=== PATIENT | female | born 1980 | race Caucasian/White ===

== ENCOUNTER 2020-05-16 06:55 | Emergency (ER) | payer OTHER ==
[~2020-05-16 06:55] MED LIST: FLONASE 0.05% N16 GM; IBUPROFEN600 MG PO; PEPCID20 MG PO; PREDNISONE20 MG PO; ZOFRAN4 MG PO
[2020-05-16 09:11] LABS: HEMOGLOBIN 12.5 gm/dl (12.3-15.3); RED BLOOD COUNT 4.54 M/UL (4.00-5.10); WHITE BLOOD COUNT 6.8 K/UL (4.5-11.0)
[2020-05-16 09:35] LABS: BUN/CREATININE RATIO 23 (0-10)
[2020-05-16] MEDS ORDERED: ONDANSETRON ODT4 MG SL (10:37)
[2020-05-16] MEDS ORDERED: PYRIDIUM200 MG PO (10:37)
[2020-05-16] MEDS ORDERED: CEFUROXIME500 MG PO (10:37)
== END 2020-05-16 11:44 | disposition home or self-care (01) ==
LOC: ER1 06:55
PROVIDERS: Physician Assistant
DX: N39.0 Urinary tract infection, site not specified (principal); R31.9 Hematuria, unspecified; K59.00 Constipation, unspecified; J45.909 Unspecified asthma, uncomplicated; E03.9 Hypothyroidism, unspecified; Z87.442 Personal history of urinary calculi; Z87.39 Personal history of other diseases of the musculoskeletal system and connective tissue; Z88.0 Allergy status to penicillin; Z90.710 Acquired absence of both cervix and uterus; Z79.899 Other long term (current) drug therapy
CPT/HCPCS: 80053; 81001; 85025; 87086; 96374; 99284; J1885; J7030

== ENCOUNTER 2020-06-20 17:23 | Emergency (ER) | payer OTHER ==
[~2020-06-20 17:23] MED LIST changes: +CEFUROXIME500 MG PO; +ONDANSETRON ODT4 MG SL; +PYRIDIUM200 MG PO
[2020-06-20 19:11] LABS: HEMOGLOBIN 13.1 gm/dl (12.3-15.3); RED BLOOD COUNT 4.73 M/UL (4.00-5.10); WHITE BLOOD COUNT 4.5 K/UL (4.5-11.0)
[2020-06-20 19:32] LABS: BUN/CREATININE RATIO 12 (0-10)
[2020-06-20] MEDS ORDERED: ZITHROMAX500 MG PO (20:18)
[2020-06-20] MEDS ORDERED: TESSALON PERLE100 MG PO (20:18)
[2020-06-20] MEDS ORDERED: MEDROL4 MG PO (20:18)
== END 2020-06-20 20:40 | disposition home or self-care (01) ==
LOC: ER1 17:23
PROVIDERS: Preventive Medicine Occupational Medicine
DX: U07.1 COVID-19 (principal); J45.909 Unspecified asthma, uncomplicated; F17.200 Nicotine dependence, unspecified, uncomplicated
CPT/HCPCS: 0240U; 36415; 71045; 80048; 85025; 96372; 99285; J2930

== ENCOUNTER 2020-06-22 04:16 | Emergency (ER) | payer OTHER ==
[~2020-06-22 04:16] MED LIST changes: +MEDROL4 MG PO; +TESSALON PERLE100 MG PO; +ZITHROMAX500 MG PO
[2020-06-22 05:27] LABS: HEMOGLOBIN 13.1 gm/dl (12.3-15.3); RED BLOOD COUNT 4.63 M/UL (4.00-5.10)
[2020-06-22 05:28] LABS: WHITE BLOOD COUNT 14.9 K/UL (4.5-11.0)
[2020-06-22 05:44] LABS: BUN/CREATININE RATIO 21 (0-10)
[2020-06-22] MEDS ORDERED: NASONEX17 GM (06:47)
[2020-06-22] MEDS ORDERED: FLOVENT 110.088 GM/I INH (06:47)
[2020-06-22] MEDS ORDERED: ZOFRAN 4 MG TAB4 MG PO (06:47)
[2020-06-22] MEDS ORDERED: IBUPROFEN800 MG PO (06:47)
[2020-06-22] MEDS ORDERED: PROAIR DIGIHAL90 MCG INH (06:47)
== END 2020-06-22 07:00 | disposition home or self-care (01) ==
LOC: ER1 04:16
PROVIDERS: Emergency Medicine
DX: U07.1 COVID-19 (principal); J45.909 Unspecified asthma, uncomplicated
CPT/HCPCS: 71045; 80053; 81001; 85025; 93005; 99285

== ENCOUNTER 2020-06-28 15:48 | Inpatient (IN) | payer OTHER ==
[~2020-06-28] VITALS: Ht 162.6 cm; Wt 90.7 kg
[~2020-06-28 15:48] MED LIST changes: +FLOVENT 110.088 GM/I INH; +IBUPROFEN800 MG PO; +NASONEX17 GM; +PROAIR DIGIHAL90 MCG INH; +ZOFRAN 4 MG TAB4 MG PO
[2020-06-28 20:10] LABS: HEMOGLOBIN 13.7 gm/dl (12.3-15.3); RED BLOOD COUNT 4.9 M/UL (4.00-5.10); WHITE BLOOD COUNT 7.7 K/UL (4.5-11.0)
[2020-06-28 20:27] LABS: BUN/CREATININE RATIO 21 (0-10)
[2020-06-29] MEDS ORDERED: PROGESTERONE200 MG PO (00:18)
[2020-06-29] MEDS ORDERED: PROTONIX 40 MG40 M1 PO (00:19)
[2020-06-29] MEDS ORDERED: WELLBUTRIN SR150 M1 PO (00:19)
[2020-06-29] MEDS ORDERED: XYZAL5 MG PO (00:21)
[2020-06-29] MEDS ORDERED: LEVOTHYROXINE150 MC1 PO (00:22)
[2020-06-29] MEDS ORDERED: PROBIOTIC1 EAC1 PO (00:22)
[2020-06-29] MEDS ORDERED: ASPIRIN EC81 MG PO (00:23)
[2020-06-29] MEDS ORDERED: TYLENOL 500 MG500 MG PO (00:24)
[2020-06-29] MEDS ORDERED: MELOXICAM7.5 MG PO (00:25)
[2020-06-29] MEDS ORDERED: VENTOLIN HFA 66.7 GM INH (00:26)
[2020-06-29] MEDS ORDERED: ALBUTEROL2.5 MG/3 M INH (00:27)
[2020-06-29] MEDS ORDERED: ZOLOFT100 MG PO (00:27)
[2020-06-29] MEDS ORDERED: CLARITIN10 M2 PO (00:28)
[2020-06-29] MEDS ORDERED: SINGULAIR10 MG PO (00:28)
[2020-06-29] MEDS ORDERED: ESTRADIOL PATCH TOP (00:36)
[2020-06-29 08:27] LABS: HEMOGLOBIN 12.7 gm/dl (12.3-15.3); RED BLOOD COUNT 4.62 M/UL (4.00-5.10); WHITE BLOOD COUNT 5.9 K/UL (4.5-11.0)
[2020-06-29 08:46] LABS: BUN/CREATININE RATIO 21 (0-10)
[2020-07-02 04:16] LABS: HEMOGLOBIN 11.3 gm/dl (12.3-15.3)
[2020-07-02 04:18] LABS: BUN/CREATININE RATIO 30 (0-10)
[2020-07-02 04:27] LABS: RED BLOOD COUNT 4.09 M/UL (4.00-5.10); WHITE BLOOD COUNT 13.4 K/UL (4.5-11.0)
[2020-07-02] MEDS ORDERED: DOXYCYCLINE HY100 M2 PO (14:26)
[2020-07-02] MEDS ORDERED: DEXAMETHASONE1 MG PO (14:26)
== END 2020-07-02 16:51 | disposition home or self-care (01) | DRG 177 ==
LOC: ER1 15:48 → CDU 21:24 → M/S 06-29 18:00
PROVIDERS: Emergency Medicine; Internal Medicine; ADMIT Internal Medicine
PROC: 8E0ZXY6 Isolation (ICD-10-PCS; principal; 2020-06-28)
PROC: XW033E5 Introduction of Remdesivir Anti-infective into Peripheral Vein, Percutaneous Approach, New Technology Group 5 (ICD-10-PCS; 2020-06-28)
PROC: XW13325 Transfusion of Convalescent Plasma (Nonautologous) into Peripheral Vein, Percutaneous Approach, New Technology Group 5 (ICD-10-PCS; 2020-06-29)
DX: U07.1 COVID-19 (principal); J12.82 Pneumonia due to coronavirus disease 2019; J45.909 Unspecified asthma, uncomplicated; E03.9 Hypothyroidism, unspecified; Z90.710 Acquired absence of both cervix and uterus; Z88.0 Allergy status to penicillin; Z82.5 Family history of asthma and other chronic lower respiratory diseases; Z83.3 Family history of diabetes mellitus; Z82.49 Family history of ischemic heart disease and other diseases of the circulatory system; F41.9 Anxiety disorder, unspecified; Z79.82 Long term (current) use of aspirin; Z79.890 Hormone replacement therapy; Z79.899 Other long term (current) drug therapy
CPT/HCPCS: 36415; 36600; 71045; 80048; 80053; 82550; 82553; 82803; 83605; 83690; 83735; 83874; 83880; 84100; 84439; 84443; 84484; 85025; 85027; 85379; 85610; 85730; 86900; 86901; 86927; 87040; 93005; 94640; 94664; 94760; 96365; 96366; 96367; 96375; 99285; J1100; J1650; J2405; J7030

== ENCOUNTER → 2020-07-24 | Outpatient (CLI) | payer OTHER ==
[~2020-07-24] MED LIST changes: +ALBUTEROL2.5 MG/3 M INH; +ASPIRIN EC81 MG PO; +CLARITIN10 M2 PO; +CLEOCIN HCL300 MG PO; +DEXAMETHASONE1 MG PO; +DOXYCYCLINE HY100 M2 PO; +ESTRADIOL PATCH TOP; +LEVOTHYROXINE150 MC1 PO; +MELOXICAM7.5 MG PO; +NAPROXEN500 MG PO; +PROBIOTIC1 EAC1 PO; +PROGESTERONE200 MG PO; +PROTONIX 40 MG40 M1 PO; +SINGULAIR10 MG PO; +TYLENOL 500 MG500 MG PO; +VENTOLIN HFA 66.7 GM INH; +WELLBUTRIN SR150 M1 PO; +XYZAL5 MG PO; +ZOLOFT100 MG PO
== END ==
LOC: KOH-I 15:41
DX: J18.9 Pneumonia, unspecified organism (principal)
CPT/HCPCS: 71046

== ENCOUNTER 2020-10-29 15:36 | Emergency (ER) | payer OTHER ==
[~2020-10-29 15:36] MED LIST changes: -CLEOCIN HCL300 MG PO; -NAPROXEN500 MG PO
[2020-10-29 17:05] LABS: HEMOGLOBIN 12.7 gm/dl (12.3-15.3); RED BLOOD COUNT 4.94 M/UL (4.00-5.10); WHITE BLOOD COUNT 7.4 K/UL (4.5-11.0)
[2020-10-29 17:27] LABS: BUN/CREATININE RATIO 24 (0-10)
[2020-10-29] MEDS ORDERED: NAPROXEN500 MG PO (19:03)
[2020-10-29] MEDS ORDERED: CLEOCIN HCL300 MG PO (19:03)
== END 2020-10-29 19:35 | disposition home or self-care (01) ==
LOC: ER1 15:36
PROVIDERS: Physician Assistant Medical
DX: R51.9 Headache, unspecified (principal); K08.89 Other specified disorders of teeth and supporting structures; K21.9 Gastro-esophageal reflux disease without esophagitis; Z90.710 Acquired absence of both cervix and uterus; Z88.0 Allergy status to penicillin; Z79.899 Other long term (current) drug therapy
CPT/HCPCS: 70486; 80053; 85025; 96374; 96375; 99284; J1885; J2270; J2405

== ENCOUNTER 2021-01-11 10:05 | Emergency (ER) | payer OTHER ==
[~2021-01-11 10:05] MED LIST changes: +CLEOCIN HCL300 MG PO; +NAPROXEN500 MG PO
[2021-01-11] MEDS ORDERED: AZITHROMYCIN250 MG PO (13:28)
== END 2021-01-11 13:32 | disposition home or self-care (01) ==
LOC: ER1 10:05
DX: R05 Cough (principal); J45.909 Unspecified asthma, uncomplicated; Z20.822 Contact with and (suspected) exposure to COVID-19; Z90.710 Acquired absence of both cervix and uterus
CPT/HCPCS: 71045; 99285; U0002

== ENCOUNTER → 2021-12-02 | Outpatient (CLI) | payer OTHER ==
[~2021-12-02] MED LIST changes: +AZITHROMYCIN250 MG PO
== END ==
LOC: MAMO 10:00
DX: Z12.31 Encounter for screening mammogram for malignant neoplasm of breast (principal)
CPT/HCPCS: 77063; 77067